=== PATIENT | female | born 1935 | race Caucasian/White ===

== ENCOUNTER 2017-04-14 23:42 | Emergency (ER) | payer MEDICARE, BC ==
--- NOTE | ~2017-04-14 | CR72 ---
[facility] A Service of [facility] RADIOLOGY TEXT RESULTS PATIENT: WOOD KING LOCATION: [facility] : 39 UNIT #: [id number] AGE: [address]: Juan Kauffman MD SEX: F ORDER DR: [id number] [facility] [address] [place], [place] [address] [id number] E MR#: [id number] Acc #: [id number] NAME: WOOD KING : 1935 SEX: F STUDY DATE/TIME: 04/15/2017 1:10 UNIT: [facility] ROOM: STUDY DESCRIPTION: CR Chest Single View Portable Attending Physician: Juan Kauffman M.D. Ordering Physician: Jj García M.D. Primary Care Physician: Jairo Ash M.D. MEDICAL IMAGING REPORT This report is preliminary unless electronic signature is present EXAM Portable chest INDICATION Shortness of air for the past 2 days. PROCEDURE Frontal view chest. COMPARISON 03/19/2015 FINDINGS Stable mild cardiomegaly. Linear scarring or atelectasis in the left lung base. No pneumothorax. IMPRESSION Linear scarring or atelectasis in the left lung base, otherwise no change from 2014. Dictated by... Jj Cote M.D. THIS IS AN ELECTRONICALLY VERIFIED REPORT Jj Cote M.D. at 04/17/2017 10:00 PM EED/coleman TD: 04/15/2017 05:04 JOB #: [id number] [facility] A Service of [facility] RADIOLOGY TEXT RESULTS PATIENT: WOOD KING LOCATION: [facility] : 39 UNIT #: [id number] AGE: [address]: Juan Kauffman MD SEX: F ORDER DR: MEDICAL IMAGING REPORT Page 1 of 1 COPY
--- NOTE | ~2017-04-14 | EKG ---
PATIENT: WOOD KING UNIT #: [id number] Ventricular Rate: 68 BPM Atrial Rate: 68 BPM P-R Interval: 166 ms QRS Duration: 74 ms Q-T Interval: 414 ms QTC Calculation(Bezet): 440 ms P Hay: 33 degrees Calculated R Hay: -30 degrees Calculated T Hay: 106 degrees Diagnosis Line: Normal sinus rhythm Diagnosis Line: Possible Left atrial enlargement Diagnosis Line: Left axis deviation Diagnosis Line: Left ventricular hypertrophy Diagnosis Line: Cannot rule out Septal infarct , age undetermined Diagnosis Line: Possible Lateral infarct , age undetermined Diagnosis Line: Abnormal ECG Diagnosis Line: When compared with ECG of 19-MAR-2015 04:09, Diagnosis Line: Minimal criteria for Septal infarct are now Diagnosis Line: Present Diagnosis Line: Borderline criteria for Lateral infarct are now Diagnosis Line: Present Diagnosis Line: T wave inversion now evident in Lateral leads Diagnosis Line: Confirmed by MAMTA PALMA MD ([id number]) on Diagnosis Line: 04/18/2017 10:45:53 AM INTERPRETING MD: LOUIE COLBERT
[~2017-04-14 23:42] MED LIST: BACLOFEN10 MG PO; CARBIDOPA-1 UDTAB.S3 PO; CERTAGEN PO; FLEXERIL10 M1 PO; GLUCOPHAGE500 M1 PO; LISINOPRIL20 MG PO; LUMIGAN OP; METFORMIN HCL500 M1 PO; NORVASC PO; OXYCODONE HCL10 MG PO; PERCOCET7.5 PO; PROTONIX PO; SIMVASTATIN20 MG PO
[2017-04-15 01:53] LABS: URINE SOURCE CLEAN CATCH
[2017-04-15 01:54] LABS: BASOPHIL# 0.1 X10e3 (0-0.3); BASOPHIL% 0.8 % (0-2.5); DIFF IND NO; EOSINOPHIL# 0.1 X10e3 (0-0.7); HEMATOCRIT 42.7 % (35.0-45.0); HEMOGLOBIN 13.9 gm/dL (12.0-16.0); LYMPHOCYTE# 2.6 X10e3 (1.0-3.5); LYMPHOCYTE% 37.8 % (17.0-45.0); MEAN CORPUSCULAR HEMOGLOBIN 27.4 PG (28-34); MEAN CORPUSCULAR HGB CONC 32.6 g/dL (30-36); MEAN PLATELET VOLUME 8.5 FL (6.5-11.5); MONOCYTE# 0.7 X10e3 (0-1.0); MONOCYTE% 10.3 % (3.0-12.0); NEUTROPHIL# 3.4 X10e3 (1.5-7.1); NEUTROPHIL% 49.1 % (40-75); PLATELET COUNT 224 X10e3 (140-420); RED BLOOD COUNT 5.08 X10e (3.90-5.30); RED CELL DISTRIBUTION WIDTH 16.6 % (11.0-15.5)
[2017-04-15 01:55] LABS: URINE APPEARANCE CLOUDY; URINE BLOOD NEG (NEG); URINE COLOR DK YELLOW; URINE GLUCOSE NEG (NEG); URINE KETONE 1+ (NEG); URINE LEUKOCYTE ESTERASE TRACE (NEG); URINE NITRATE NEG (NEG); URINE PROTEIN TRACE (NEG); URINE SPECIFIC GRAVITY 1.037 (1.003-1.035)
[2017-04-15 01:57] LABS: CULTURE INDICATED? YES; URINE BACTERIA AUWI 2+ (NEGATIVE); URINE SQUAMOUS EPITHELIAL CELL OCC /[HPF]
[2017-04-15 02:02] LABS: URINE BILIRUBIN NEG (NEG)
[2017-04-15 02:13] LABS: ALBUMIN SERUM 3.7 g/dL (3.5-5.0); ALKALINE PHOSPHATASE 61 U/L (32-92); AST (SGOT) 16 U/L (10-42); BILIRUBIN, DIRECT 0.1 mg/dL (0.0-0.2); BLOOD UREA NITROGEN 10 mg/dL (9-23); BUN/CREATININE RATIO 16.66; CALCIUM SERUM 9.4 mg/dL (8.4-10.2); CARBON DIOXIDE 25 mmol/L (22-31); CHLORIDE 105 mmol/L (100-111); CREATININE SERUM 0.6 mg/dL (0.6-1.4); GLOM FILT RATE Estimated 86.7 mL/min (>60); GLUCOSE FASTING 101 mg/dL (70-110); POTASSIUM 4.6 mmol/L (3.5-5.1); PROTEIN TOTAL SERUM 7.1 g/dL (6.0-8.3); SODIUM 140 mmol/L (135-145)
[2017-04-15 02:14] LABS: ALT (SGPT) <5 U/L (10-40); BILIRUBIN,TOTAL <0.1 mg/dL (0.2-2.0)
== END 2017-04-15 04:40 | disposition home or self-care (01) ==
LOC: CED 23:42
PROVIDERS: Emergency Medicine
DX: N30.00 Acute cystitis without hematuria (principal); E11.9 Type 2 diabetes mellitus without complications; I10 Essential (primary) hypertension; G20 Parkinson's disease; Z98.890 Other specified postprocedural states; Z88.0 Allergy status to penicillin; Z79.899 Other long term (current) drug therapy
CPT/HCPCS: 36415; 71010; 80048; 80076; 81003; 85025; 87086; 93005; 96365; 99285; J0696